=== PATIENT | female | born 1960 | race African-American/Black ===

== ENCOUNTER 2017-02-17 19:11 | Emergency (ER) | payer BC, OTHER ==
[~2017-02-17] VITALS: Ht 167.6 cm; Wt 79.5 kg
[2017-02-17] MEDS ORDERED: IBUPROFEN 800MG TABLET PO ONE (19:45)
[2017-02-17 20:21] LABS: BASOPHILS % 0.8 % (0.0-2.0); DIFFERENTIAL COMMENT 0; EOSINOPHILS % 0.7 % (0.0-5.0); HEMATOCRIT. 39.2 % (36.0-48.0); HEMOGLOBIN. 13.3 g/dL (12.0-16.0); LYMPHOCYTES % 28.8 % (20.0-50.0); MEAN CORPUSCULAR HEMOGLOBIN 26.5 pg (28.0-32.0); MEAN CORPUSCULAR HGB CONC 33.9 g/dL (31.0-37.0); MEAN CORPUSCULAR VOLUME 78.2 fL (81.0-99.0); MEAN PLATELET VOLUME 9.7 fl (7.4-10.4); MONOCYTES % 7.9 % (2.0-8.0); NEUTROPHILS % 61.8 % (40.0-76.0); PLATELET 93 x1000/uL (130-400); RED BLOOD CELL COUNT 5.02 mill/uL (4.2-5.4); RED CELL DISTRIBUTION WIDTH 13.4 % (11.6-14.6); WHITE BLOOD COUNT 9.3 x1000/uL (4.5-11.0)
[2017-02-17 20:24] LABS: PARTIAL THROMBOPLASTIN TIME 29.6 sec (24.0-34.0); PROTHROMBIN TIME 10.8 sec
[2017-02-17 20:31] LABS: ALANINE AMINOTRANSFERASE 14 IU/L (13-61); ALBUMIN 3.4 g/dL (3.4-5.0); ANION GAP 13; CALCIUM 8.6 mg/dL (8.5-10.1); CARBON DIOXIDE 29 mEq/L (21-32); CHLORIDE 103 mEq/L (98-107); INDEX HEMOLYSI 1 (1-3); INDEX ICTERIC 1 (1-4); INDEX LIPEMIC 1 (1-3); LIPASE 102 IU/L (73-393); UREA NITROGEN BLOOD 11 mg/dL (7-21); eGFR > 60 mL/min (>60)
[2017-02-17 20:32] LABS: TROPONIN I < 0.02 ng/mL (0.00-0.04)
[2017-02-17] MEDS ORDERED: SODIUM CHLORIDE 0.9% 1,000 ML IV ONE (20:45)
[2017-02-17 23:02] VITALS: BP 130/72
== END 2017-02-17 23:06 | disposition home or self-care (01) ==
LOC: ER 20:51
DX: R07.89 Other chest pain (principal); Z90.49 Acquired absence of other specified parts of digestive tract; Z90.710 Acquired absence of both cervix and uterus
CPT/HCPCS: 36415; 71010; 80053; 83690; 84484; 85025; 85379; 85610; 85730; 93005; 96360; 99285; J7030

== ENCOUNTER 2019-05-26 12:25 | Emergency (ER) | payer OTHER ==
[~2019-05-26] VITALS: Ht 165.1 cm; Wt 82.0 kg
[2019-05-26 12:59] VITALS: BP 143/86
[2019-05-26] MEDS ORDERED: LORA5SOL6 PO (13:03)
== END 2019-05-26 19:11 | disposition home or self-care (01) ==
LOC: ER 12:25
DX: S70.02XA Contusion of left hip, initial encounter (principal); S70.01XA Contusion of right hip, initial encounter; S80.01XA Contusion of right knee, initial encounter; S30.1XXA Contusion of abdominal wall, initial encounter; M25.512 Pain in left shoulder; M79.601 Pain in right arm; Z90.49 Acquired absence of other specified parts of digestive tract; Z90.710 Acquired absence of both cervix and uterus; Z79.899 Other long term (current) drug therapy; Z87.19 Personal history of other diseases of the digestive system; V89.2XXA Person injured in unspecified motor-vehicle accident, traffic, initial encounter; Y93.89 Activity, other specified; Y92.89 Other specified places as the place of occurrence of the external cause; Y99.8 Other external cause status
CPT/HCPCS: 73030; 73060; 73562; 99283

== ENCOUNTER 2023-10-17 18:12 | Emergency (ER) | payer OTHER ==
[~2023-10-17] VITALS: Ht 165.1 cm; Wt 77.1 kg
[~2023-10-17 18:12] MED LIST: LORA5SOL6 PO
[2023-10-17 18:21] VITALS: BP 175/105; O2SAT 98
[2023-10-17] MEDS ORDERED: ALBU18HF2 IH (21:21)
[2023-10-17] MEDS ORDERED: NAPR-681 MT (21:21)
[2023-10-17] MEDS ORDERED: D-ME473S50 PO (21:21)
[2023-10-17 21:38] VITALS: PULSE 77; RESP 16; TEMP 98.6
== END 2023-10-17 22:23 | disposition home or self-care (01) ==
LOC: ER 18:12
DX: U07.1 COVID-19 (principal); Z90.710 Acquired absence of both cervix and uterus; Z90.49 Acquired absence of other specified parts of digestive tract; Z20.822 Contact with and (suspected) exposure to COVID-19
CPT/HCPCS: 99284; 71045; 87426; 87430; 87070; C9803

== ENCOUNTER 2024-02-05 14:23 | Emergency (ER) | payer OTHER ==
[~2024-02-05] VITALS: Ht 162.6 cm; Wt 79.4 kg
[~2024-02-05 14:23] MED LIST changes: +ALBU18HF2 IH; +D-ME473S50 PO; +NAPR-681 MT
[2024-02-05 15:00] LABS: BASOPHILS % 0.6 % (0.0-2.0); DIFFERENTIAL COMMENT 0; EOSINOPHILS % 0.3 % (0.0-5.0); HEMATOCRIT. 40.1 % (36.0-48.0); HEMOGLOBIN. 13.9 g/dL (12.0-16.0); LYMPHOCYTES % 24.9 % (20.0-50.0); MEAN CORPUSCULAR HEMOGLOBIN 27.5 pg (28.0-32.0); MEAN CORPUSCULAR HGB CONC 34.6 g/dL (31.0-37.0); MEAN CORPUSCULAR VOLUME 79.5 fL (81.0-99.0); MEAN PLATELET VOLUME 9.3 fl (7.4-10.4); MONOCYTES % 5.9 % (2.0-8.0); NEUTROPHILS % 68.3 % (40.0-76.0); PLATELET 76 x1000/uL (130-400); RED BLOOD CELL COUNT 5.04 mill/uL (4.2-5.4); RED CELL DISTRIBUTION WIDTH 13.8 % (11.6-14.6); WHITE BLOOD COUNT 7.6 x1000/uL (4.5-11.0)
[2024-02-05 15:13] LABS: ALANINE AMINOTRANSFERASE 9 IU/L (10-49); ALBUMIN 5.1 g/dL (3.2-4.8); ASPARTATE AMINOTRANSFERASE 17 IU/L (<34); BILIRUBIN TOTAL 1.1 mg/dL (0.1-1.0); CALCIUM 9.6 mg/dL (8.7-10.4); CARBON DIOXIDE 29 mEq/L (21-32); CHLORIDE 105 mEq/L (98-107); CREATININE 0.8 mg/dL (0.6-1.0); GLUCOSE 91 mg/dL (70-105); POTASSIUM 3.9 mEq/L (3.5-5.1); PROTEIN TOTAL 8.3 g/dL (6.0-8.3); SODIUM 140 mEq/L (136-145); UREA NITROGEN BLOOD 11 mg/dL (9-23)
[2024-02-05 15:26] VITALS: O2SAT 100
[2024-02-05 16:53] LABS: TROPONIN I HIGH SENSITIVITY < 4 ng/L (3.0-34)
[2024-02-05 17:13] LABS: BG BASE EXCESS -1.3 mmol/L (-2.0-2.0); BG CARBOXYHEMOGLOBIN 0.2 % (0.5-1.5); BG DEOXYHEMOGLOBIN 2.4 % (0.0-5.0); BG FRACTION INSPIRED OXYGEN 21; BG METHEMOGLOBIN 0.2 % (0.0-1.5); BG OXYGEN SATURATION 97.6 % (92.0-98.5); BG OXYHEMOGLOBIN 97.2 % (94.0-97.0); BG PCO2 33.4 mmHg (35.0-45.0); BG PH 7.437 (7.350-7.450); BG PO2 98.6 mmHg (75.0-100.0); BG SAMPLE SITE RIGHT BRACHIAL; BG VENT MODE ROOM AIR
[2024-02-05] MEDS: ONDANSETRON 4MG ODT PO STA (17:24)
[2024-02-05] MEDS: ACETAMINOPHEN 325MG TABLET PO STA (17:24)
[2024-02-05 17:51] LABS: CLARITY URINE CLEAR (CLEAR); COLOR URINE YELLOW (YELLOW); GLUCOSE URINE NEGATIVE (NEGATIVE); KETONES URINE NEGATIVE (NEGATIVE); LEUKOCYTE ESTERASE URINE NEGATIVE (NEGATIVE); NITRITE URINE NEGATIVE (NEGATIVE); OCCULT BLOOD URINE 1+ (NEGATIVE); PH URINE 5.5 (4.5-8.0); PROTEIN URINE NEGATIVE (NEGATIVE); SPECIFIC GRAVITY URINE 1.014 (1.005-1.030)
[2024-02-05 18:03] LABS: BACTERIA URINE NONE SEEN; RBC URINE 0-2 /hpf (0-2); SQUAMOUS EPITHELIAL CELL URINE 1+ /lpf (RARE/1+); WBC URINE 0-2 /hpf (0-2)
[2024-02-05] MEDS ORDERED: NAPR-681 PO (18:21)
[2024-02-05] MEDS ORDERED: MECL-299 PO (18:21)
[2024-02-05 18:39] VITALS: BP 172/97; PULSE 80; RESP 12; TEMP 98.5
[2024-02-05] MEDS ORDERED: AMLO5TAB88 MT (18:47)
[2024-02-05] MEDS: CLONIDINE 0.1MG TABLET PO ONE (18:52)
== END 2024-02-05 18:54 | disposition home or self-care (01) ==
LOC: ER 15:06
DX: I10 Essential (primary) hypertension (principal); R42 Dizziness and giddiness
CPT/HCPCS: 36415; 36600; 71045; 80053; 81003; 82375; 82805; 84484; 85025; 87070; 87430; 93005; 99285; Q0162

== ENCOUNTER 2024-12-09 13:36 | Emergency (ER) | payer OTHER ==
[~2024-12-09] VITALS: Ht 167.6 cm; Wt 72.0 kg
[~2024-12-09 13:36] MED LIST changes: +AMLO5TAB88 MT; +MECL-299 PO; +NAPR-681 PO
[2024-12-09 13:58] VITALS: BP 134/76; TEMP 98.3
[2024-12-09] MEDS ORDERED: IPRATROPIUM/ALBUTEROL 0.5-3(2.5)MG/3ML NEB HHN ONE (16:15)
[2024-12-09] MEDS ORDERED: ALBU18HF2 IH (16:24)
[2024-12-09] MEDS ORDERED: AMOX1TAB16 MT (16:24)
[2024-12-09] MEDS ORDERED: AZIT500T8 MT (16:24)
[2024-12-09 18:16] VITALS: PULSE 74; RESP 16; O2SAT 97
[2024-12-09] MEDS: IPRATROPIUM/ALBUTEROL 0.5-3(2.5)MG/3ML NEB HHN NR (18:16)
== END 2024-12-09 19:59 | disposition home or self-care (01) ==
LOC: ER 14:31
DX: J18.9 Pneumonia, unspecified organism (principal); I10 Essential (primary) hypertension; Z20.822 Contact with and (suspected) exposure to COVID-19; Z98.890 Other specified postprocedural states
CPT/HCPCS: 87804 ×2; 71045; 94640; 94070; 99284; 87426; Z7610 ×3; 94664

== ENCOUNTER 2025-10-22 15:42 | Emergency (ER) | payer MEDICARE, MEDICAID ==
[~2025-10-22] VITALS: Ht 167.6 cm; Wt 77.0 kg
[~2025-10-22 15:42] MED LIST changes: +AMOX1TAB16 MT; +AZIT500T8 MT
[2025-10-22 16:05] VITALS: BP 136/80; RESP 16; TEMP 37.1; O2SAT 100
[2025-10-22 16:19] VITALS: PULSE 91; O2SAT 100
[2025-10-22] MEDS ORDERED: CIPHCO EACH EAR (16:27)
[2025-10-22] MEDS ORDERED: AMOX1TAB16 MT (16:27)
[2025-10-22] MEDS ORDERED: ERYT1OIN6 LEFTEYE (16:27)
[2025-10-22] MEDS ORDERED: IBUP-2030 MT (16:27)
== END 2025-10-22 16:38 | disposition home or self-care (01) ==
LOC: ER 15:42
DX: H00.014 Hordeolum externum left upper eyelid (principal); H60.92 Unspecified otitis externa, left ear; I10 Essential (primary) hypertension; Z90.710 Acquired absence of both cervix and uterus; Z90.49 Acquired absence of other specified parts of digestive tract; Z79.899 Other long term (current) drug therapy
CPT/HCPCS: 99283